=== PATIENT | female | born 1975 | race Caucasian/White ===

== ENCOUNTER 2021-10-15 11:09 | Emergency (ER) | payer OTHER ==
[~2021-10-15] VITALS: Ht 162.6 cm; Wt 90.9 kg
[~2021-10-15 11:09] MED LIST: ASPI-556 PO; ATOR20TA86 PO; LEVO100 PO; METF-1211 PO; TOPI25 PO
[2021-10-15 11:16] VITALS: BP 154/94
[2021-10-15] MEDS ORDERED: DiphenhydrAMINE HCL 50 MG/ML VIAL IVP ONE (11:30)
[2021-10-15] MEDS ORDERED: KETOROLAC TROMETHAMINE 30 MG/ML VIAL IVP ONE (11:30)
[2021-10-15] MEDS ORDERED: METOCLOPRAMIDE HCL 5 MG/ML 2 ML VIAL IVP ONE (11:30)
[2021-10-15] MEDS ORDERED: SODIUM CHLORIDE 0.9% 1,000 ML IV ONE (11:30)
[2021-10-15 11:31] LABS: GLUCOSE,POINT OF CARE 115 MG/DL (70-110)
[2021-10-15] MEDS ORDERED: ATOG60TA PO (11:36)
[2021-10-15] MEDS ORDERED: METF-1211 PO (11:36)
[2021-10-15] MEDS ORDERED: UBRO100T PO (11:36)
== END 2021-10-15 18:58 | disposition home or self-care (01) ==
LOC: EMS 11:12
DX: G43.909 Migraine, unspecified, not intractable, without status migrainosus (principal)
CPT/HCPCS: 99284; 96374; 70450; 96375; 96361; 82962; J1200; J1885; J2765; J7030